=== PATIENT | male | born 1950 | race Caucasian/White ===

== ENCOUNTER → 2023-12-07 10:29 | Outpatient (REF) | payer MEDICARE, OTHER, SELFPAY | LOC: RAD 10:29 | PROVIDERS: ATTENDING PHYSICIAN Orthopaedic Surgery; FAMILY PHYSICIAN Family Medicine | DX: M25.531 Pain in right wrist (principal) | CPT/HCPCS: 73130 ==

== ENCOUNTER → 2023-12-09 10:28 | Outpatient (REF) | payer MEDICARE, OTHER, SELFPAY | LOC: HWCARD 10:28 | PROVIDERS: ATTENDING PHYSICIAN Physical Medicine & Rehabilitation; FAMILY PHYSICIAN Family Medicine | DX: M96.1 Postlaminectomy syndrome, not elsewhere classified (principal) | CPT/HCPCS: 93005 ==

== ENCOUNTER → 2024-02-01 07:07 | Outpatient (REF) | payer MEDICARE, OTHER, SELFPAY | LOC: HWRAD 07:07 | PROVIDERS: ATTENDING PHYSICIAN Physician Assistant; FAMILY PHYSICIAN Family Medicine | DX: L72.0 Epidermal cyst (principal) | CPT/HCPCS: 76536 ==

== ENCOUNTER → 2024-03-10 06:29 | Day surgery (SDC) | payer MEDICARE, OTHER, SELFPAY | LOC: GI 06:29 | PROVIDERS: ATTENDING PHYSICIAN Specialist | DX: Z12.11 Encounter for screening for malignant neoplasm of colon (principal); K57.30 Diverticulosis of large intestine without perforation or abscess without bleeding; K63.5 Polyp of colon | CPT/HCPCS: 45380; 88305 ==